=== PATIENT | female | born 1960 | race Caucasian/White ===

== ENCOUNTER → 2018-12-27 | Outpatient (CLI) | payer OTHER ==
[~2018-12-27] MED LIST: GADOBUTROL 10 ML VIAL IVP ONE
== END ==
LOC: FIMAGING 06:50
PROVIDERS: ATTEND Physician Assistant Medical
DX: H53.9 Unspecified visual disturbance (principal); R20.0 Anesthesia of skin; Z82.0 Family history of epilepsy and other diseases of the nervous system
CPT/HCPCS: A9585